=== PATIENT | female | born 1970 | race Caucasian/White ===

== ENCOUNTER 2018-02-08 16:45 | Emergency (ER) | payer OTHER ==
--- NOTE | 2018-02-08 16:55 | EDPHY ---
H & P Stated Complaint: diagnosed with bronchitits this morning, increasing SOB and cough Time Seen by Provider: 02/08/18 16:54 HPI/ROS: HPI: This is a 47-year-old female who presents with Chief Complaint: diagnosed with bronchitis this morning, increasing SOB and cough Location: chest Quality: Cough and shortness of breath Duration: 3 days Signs and Symptoms: + shortness of breath at rest, + shortness of breath on exertion, + dry hacking, cough, no chest pain, no palpitations, no lower extremity edema, no wheezing, no orthopnea, no paroxysmal nocturnal dyspnea, no fever, no injury/trauma, no hemoptysis, no carpal pedal spasms Timing: rapid onset Severity: moderate Context: Patient presents today with complaints of 3 day history of feeling fatigue and having a dry hacking cough. She reports that she went to [place] this weekend on family location and felt fine. On a plane ride home she started to cough. She went to see her primary care provider today who diagnosed her with bronchitis and started her on doxycycline, Ventolin, Flonase , Tessalon Perles. She reports that she took her 1st dose at 11:00 a.m. Has not taken any since. She reports that approximately 2 hr ago that she had this dry hacking cough and felt like she needed to"get something up" but was unable to. She reports that she became extremely short of breath and started to cry. She called her primary care provider who advised her to go to the emergency room for further evaluation. Patient denies any history of lung disease. She has no fever/lower extremity swelling/palpitations/chest pain. Patient reports that approximately 7-8 weeks ago she was diagnosed with a sinus infection and then had allergies as well and completed a course antibiotics at that time. IUD in place. Modifying Factors: Comment: ROS: see HPI Constitutional: No fever, no chills, no weight loss Eyes: No blurred vision Respiratory: No shortness of breath, + cough Cardiovascular: No chest pain, no palpitations, no lower extremity edema Gastrointestinal: No nausea, no vomiting, no diarrhea Genitourinary: No dysuria Extremities: No myalgias Neurologic: No weakness, no numbness Skin: No rashes Hematologic: No bruising, no bleeding MEDICAL/SURGICAL/SOCIAL HISTORY: Medical history: Depression Surgical history: IVF Social history: CONSTITUTIONAL: Nontoxic appearing middle-aged white female, polite and cooperative, awake and alert, no obvious distress HEENT: Atraumatic and normocephalic, PERRL, EOMI. Nares patent; no rhinorrhea; no nasal mucosal edema. Tympanic membranes clear. Oropharynx clear, no exudate and moist pink mucosa. Airway patent. No lymphadenopathy. No meningismus. Cardiovascular: Normal S1/S2, regular rate, regular rhythm, without murmur rub or gallop. PULMONARY/CHEST: Symmetrical and nontender. Clear to auscultation bilaterally. Good air movement. No accessory muscle usage. ABDOMEN: Soft, nondistended, nontender, no rebound, no guarding, no peritoneal signs, no masses or organomegaly. No CVAT. EXTREMITIES: 2/2 pulses, strength 5/5, no deformities, no clubbing, no cyanosis or edema. NEUROLOGICAL: no focal neuro deficits. GCS 15. SKIN: Warm and dry, no erythema. no rash. Good capillary refill. Source: Patient Exam Limitations: No limitations - Personal History LMP (Females 10-55): IUD In Place Current Tetanus/Diphtheria Vaccine: Yes Current Tetanus Diphtheria and Acellular Pertussis (TDAP): Yes Tetanus Vaccine Date: < 10 years - Medical/Surgical History Hx Asthma: No Hx Chronic Respiratory Disease: No Hx Diabetes: No Hx Cardiac Disease: No Hx Renal Disease: No Hx Cirrhosis: No Hx Alcoholism: No Hx HIV/AIDS: No Hx Splenectomy or Spleen Trauma: No Other PMH: IVF - Social History Smoking Status: Never smoked Constitutional: Initial Vital Signs Temperature (C) 37.4 C 02/08/18 16:49 Heart Rate 74 02/08/18 16:49 Respiratory Rate 18 02/08/18 16:49 Blood Pressure 127/64 H 02/08/18 16:49 O2 Sat (%) 97 02/08/18 16:49 O2 Delivery Mode Room Air Allergies/Adverse Reactions: No Known Allergies Allergy (Unverified 02/08/18 16:47) Home Medications: Medication Instructions Recorded Benzonatate 02/08/18 Celexa 02/08/18 Doxycycline Hyclate 02/08/18 Flonase Nasal [place] 02/08/18 Ventolin Hfa 02/08/18 predniSONE [predniSONE TAPER] 10 mg PO DAILY 6 Days ea 05/24/18 Medical Decision Making - Diagnostics Imaging Results: Imaging Impressions Chest X-Ray 02/08/18 17:03 Impression: Normal. ED Course/Re-evaluation: Chest x-ray, medications and D-dimer ordered Patient has low yield for pulmonary embolism but primary care provider and patient are requesting for us to check for this laboratory study. Well's Criteria Score for PE=0 Patient given albuterol nebulizer, Tessalon Perles, prednisone 60 mg. 1732: Chest x-ray my read shows no signs of opacity, no effusion, no pneumothorax. D-dimer is unremarkable. Patient was given a short steroid taper to aid with bronchospasm and advised to continue her doxycycline, Ventolin inhaler and Tessalon Perles. This patient was seen under the supervision of my secondary supervising physician. I evaluated care for this patient independently. Differential Diagnosis: Shortness of breath including but not limited to pulmonary infectious process, asthma, pulmonary embolus, bronchitis. - Data Points Laboratory Results: 02/08/18 17:48 D-Dimer < 0.27 ug/mLFEU ug/mLFEU (0.00-0.50) Medications Given: Discontinued Medications Albuterol (Proventil Neb) 3 ml IH EDNOW ONE Stop: 02/08/18 17:04 Last Admin: 02/08/18 17:32 Dose: 3 ml Benzonatate (Tessalon Pearles) 200 mg PO EDNOW ONE Stop: 02/08/18 17:04 Last Admin: 02/08/18 17:31 Dose: 200 mg Prednisone (Prednisone) 60 mg PO EDNOW ONE Stop: 02/08/18 17:04 Last Admin: 02/08/18 17:31 Dose: 60 mg Departure - Departure Disposition: Home, Routine, Self-Care Clinical Impression: Acute bacterial bronchitis Condition: Good Instructions: Acute Bronchitis (ED), Bronchospasm (ED) Additional Instructions: Continue to take the Doxycycline, Ventolin inhaler, and Tessalon Perles as prescribed by your primary care provider. We are going to add a steroid taper for the next 6 days to treat your bronchospasm. Chest x-ray today showed no signs of pneumonia. D-dimer was unremarkable indicating you do not have a blood clot in your lung. Referrals: oLri Whiteside MD [Primary Care Provider] - 5-7 days, if not improved Prescriptions: predniSONE [predniSONE TAPER] 10 mg PO DAILY 6 Days ea
[2018-02-08] MEDS ORDERED: ALBUTEROL 3 ML DEYVIAL IH ONE (17:03)
[2018-02-08] MEDS ORDERED: BENZONATATE 100 MG CAP PO ONE (17:03)
[2018-02-08] MEDS ORDERED: predniSONE 20 MG TAB PO ONE (17:03)
[2018-02-08 18:38] VITALS: BP 110/61
== END 2018-02-08 18:51 | disposition home or self-care (01) ==
DX: J20.9 Acute bronchitis, unspecified (principal)
CPT/HCPCS: J7512; J7613

== ENCOUNTER → 2018-07-23 | Outpatient (CLI) | payer OTHER | LOC: FIMAGING 10:44 | PROVIDERS: ATTEND Physician Assistant | DX: L29.9 Pruritus, unspecified (principal) ==